=== PATIENT | male | born 1980 | race Hispanic/Latino ===

== ENCOUNTER → 2018-06-19 21:12 | Outpatient (CLI) | payer OTHER, SELFPAY | PROVIDERS: Visit Provider Physician Assistant | DX: J02.9 Acute pharyngitis, unspecified (principal) | CPT/HCPCS: 87070 ==

== ENCOUNTER 2018-10-29 16:28 | Emergency (ER) | payer OTHER, SELFPAY ==
[2018-10-29 16:39] VITALS: BP 148/104; PULSE 76; RESP 16; TEMP 37.2; O2SAT 98
--- NOTE | 2018-10-29 18:33 | ED.URI ---
HPI - URI/Sore Throat General Chief Complaint: Nasal Problem Stated Complaint: SINUS PAIN Time Seen by Provider: 10/29/18 18:27 Source: patient Mode of arrival: ambulatory Limitations: no limitations History of Present Illness HPI Narrative: Patient is a 38-year-old male who presents with facial pain. He says it thought was a viral infection about 2 weeks ago. It was getting a little bit better but over last 3 days has progressively gotten worse. He has significant pain mostly over his left his maxillary sinus he has pressure on his teeth. states that he was sweating at night. Had fever. Mild sore throat strep was negative few days ago. No cough no real headache or neck pain. MD Complaint: fever and sinus pain Onset (ago): week(s) (2) Duration: constant and progressively worsening Severity: moderate Relieving factors: nothing Exacerbating factors: nothing Related Data Previous Rx's Medication Instructions Recorded doxycycline hyclate 100 mg PO BID #20 cap 10/29/18 Allergies Allergy/AdvReac Type Severity Reaction Status Date / Time Penicillins [PENICILLINS] Allergy Intermediate Verified 10/29/18 16:45 shellfish derived Allergy Verified 10/29/18 16:45 Review of Systems Review of Systems GENERAL: Denies chills, fatigue, malaise, fever, sweats, travel HEENT: See HPI RESPIRATORY: Denies dyspnea, cough, wheezing, hemoptysis, sputum. CARDIOVASCULAR: Denies chest pain, palpitations, orthopnea, edema GASTROINTESTINAL: Denies nausea, vomiting, abdominal pain, diarrhea, constipation, melena. : Denies dysuria, frequency, incontinence, hematuria, urinary retention, flank pain. MUSCULOSKELETAL: Denies weakness, joint pain, or bony pain SKIN: No rash, no erythema, no pruritus NEUROLOGIC: Denies weakness, dizziness, headache, numbness, change in speech, confusion PSYCHIATRIC: No concerning psychosocial issues. 12 point review of systems is negative except for those stated above and HPI PFSH Social History Smoking Status: Never smoker Social History Smoking Status: Never smoker Exam Initial Vital Signs Initial Vital Signs: Vital Signs Temperature 99 F 10/29/18 16:39 Pulse Rate 76 10/29/18 16:39 Respiratory Rate 16 10/29/18 16:39 Blood Pressure 148/104 H 10/29/18 16:39 Pulse Oximetry 98 10/29/18 16:39 GENERAL: Well-appearing, well-nourished and in no acute distress. HEENT: Head atraumatic,EOMI, pupils reactive, tenderness over maxillary sinuses more on left than the right. Neck is supple CARDIOVASCULAR: Regular rate and rhythm without murmurs, rubs or gallops. RESPIRATORY: Breath sounds equal bilaterally, no wheezes rales or rhonchi. ABDOMEN: Soft, nontender. Normoactive bowel sounds all 4 quadrants. No guarding or rebound. EXTREMITIES: Normal range of motion, no clubbing or edema. Neurovascularly intact NEUROLOGICAL: Alert and oriented x4.Normal gait and speech. Cranial nerves II through XII grossly intact. SKIN: Warm, dry, no laceration, no petechiae, no rashes or lesions. Course Vital Signs - 8 hr 10/29/18 16:39 10/29/18 18:45 Temperature 99 F Pulse Rate 76 69 Respiratory Rate 16 16 Blood Pressure 148/104 H 137/85 Pulse Oximetry 98 98 MDM - URI/Sore Throat MDM Narrative Medical decision making narrative: The patient has had symptoms ongoing for greater than 10 days. I prescribed patient antibiotics as he is allergic to penicillin anaphylactic reactions to use given doxycycline. The patient has acute sinusitis is presumed to be caused by bacterial infection. Discharge Plan Departure Patient Disposition: Home Clinical Impression: Sinusitis Qualifiers: Sinusitis location: maxillary Chronicity: acute Recurrence: non-recurrent Qualified Code(s): J01.00 - Acute maxillary sinusitis, unspecified Discharge Date/Time: 10/29/18 18:58 Interventions: ED Discharge Assessment Last Done: 10/29/18 18:45 Instructions: DI for Sinusitis Activity Restrictions/Additional Instructions: *You have been diagnosed with acute sinusitis *What to do: Rest, increase fluids *Continue to take medications as directed Doxycycline 100 mg twice a day for 10 days--> sent to [facility] *Follow up with your primary care provider in 2-3 days *Return to ER if you should have increasing pain, fever, worsening headache or neck pain or any new, worsening or concerning symptoms Prescriptions: New doxycycline hyclate 100 mg capsule 100 mg PO BID Qty: 20 RF: 0 Referrals: [facility] [Provider Group]
[2018-10-29 18:45] VITALS: BP 137/85; PULSE 69; RESP 16; O2SAT 98
== END 2018-10-29 18:58 | disposition home or self-care (01) ==
PROVIDERS: Emergency Provider Emergency Medicine
DX: J01.00 Acute maxillary sinusitis, unspecified (principal)
CPT/HCPCS: 99282; 99283

== ENCOUNTER 2019-09-11 13:43 | Emergency (ER) | payer OTHER, SELFPAY ==
[2019-09-11 14:01] VITALS: BP 144/82; PULSE 81; RESP 16; TEMP 37.2; O2SAT 98; BMI 28.7
[2019-09-11] MEDS: BACITRACIN OINT 0.9 GM PCKT 1 APPLIC TOP (15:12)
[2019-09-11] MEDS: LIDO 1%/SOD BICARB 8.4% (10ML) 10 ML SYRINGE INJ (15:12)
--- NOTE | 2019-09-11 15:23 | DI.RAD.S_ITS ---
PROCEDURE: XR FINGER LT MIN 2V INDICATIONS: r/o fracture on distal 5th finger TECHNIQUE: AP hand, 2 views of the 5th finger(s) acquired. COMPARISON: None. FINDINGS: Bones: Irregularity involving the tuft of the distal phalanx of the 5th digit is present, suggesting a tuft fracture. No involvement of the distal interphalangeal joint is present. No suspicious osseous lesions are dislocations are identified. Soft tissues: No suspicious soft tissue calcifications. Soft tissue swelling involving the 5th digit is present. No unexpected radiopaque foreign bodies are identified. IMPRESSION: Tuft fracture of the distal phalanx of the 5th digit. Dictated by: Peng Hoskins M.D. on 09/11/2019 at 15:13 Approved by: Peng Hoskins M.D. on 09/11/2019 at 15:18
--- NOTE | 2019-09-11 15:29 | ED.WOUNDLAC ---
HPI - Wound/Laceration <MARY CaseP - Last Filed: 09/11/19 18:03> General Chief Complaint: Wound/Laceration Stated Complaint: lt hand pinky nail accident/ bleeding Time Seen by Provider: 09/11/19 14:44 Source: patient Mode of arrival: Ambulatory Limitations: no limitations History of Present Illness HPI narrative: This is a 38-year-old male, nonsmoker, who presents to ED with non dominant left 5th distal phalange and nail injury. Patient reports he accidentally jammed his left 5th distal phalanx she into a cement edge and his fingernail from the nail bed while he was working to remove ferns from embankment and shoveling this afternoon at 1300. 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 Patient reports able to move his affected finger without difficulty. Reports increasing discomfort when it is palpated. Related Data Previous Rx's Medication Instructions Recorded doxycycline hyclate 100 mg PO BID #20 cap 10/29/18 doxycycline hyclate 100 mg PO BID 7 Days #14 cap 09/11/19 Allergies Allergy/AdvReac Type Severity Reaction Status Date / Time Penicillins [PENICILLINS] Allergy Severe Anaphylaxis Verified 09/11/19 14:09 shellfish derived Allergy Severe Anaphylaxis Verified 09/11/19 14:09 Review of Systems <MARY CaseP - Last Filed: 09/11/19 18:03> Review of Systems Narrative: General: Denies fever, chills, fatigue, malaise, sweats. HEENT: Denies sinus pain, ear pain, sore throat, difficulty swallowing, dizziness. Respiratory: Denies dyspnea, cough, wheezing, hemoptysis, sputum. Cardiovascular: Denies chest pain, palpitations, orthopnea, edema. Gastrointestinal: Denies nausea, vomiting, abdominal pain, diarrhea, constipation, melena. : Denies dysuria, frequency, incontinence, hematuria, urinary retention. Musculoskeletal: See HPI Skin: Denies rash, skin lesions, or other. Neurologic: Denies weakness, headache, numbness, change in speech, confusion, seizures, incoordination. Psychiatric: No concerning psychosocial issues. 12-point review of systems is negative except for those stated above. Patient History <MARY CaseP - Last Filed: 09/11/19 18:03> Medical History No significant past medical history (Acute) Surgical History No pertinent past surgical history (Acute) Social History Smoking Status: Never smoker Smoking Status: Never smoker alcohol intake frequency: 0-2 drinks per day Substance Use Type: does not use Exam <BETH Case - Last Filed: 09/11/19 18:03> Narrative Exam Narrative: General appearance: well developed, well nourished, in no acute distress. Head: normocephalic, atraumatic, no scalp lesions, non-tender. ENT: Hearing grossly intact. Nose without bleeding, purulent discharge. Mucous membrane moist, no mucosal lesion. Neck/Thyroid: neck supple, full range of motion, no visible masses or meningeal signs. No JVD, non-tender without lymphadenopathy. Skin: no suspicious rashes, lesions over visible areas. Warm and dry and appropriate color for ethnicity. Heart: no clubbing, no cyanosis, no edema. Lungs: Breathing even and unlabored. No stridor. No accessory muscles used. Able to speak in full sentences. Chest: normal shape and expansion. Abdomen: non-obese, non-distended. Neurologic: alert and oriented. Cognitive exam, [employer] and PNS grossly intact on informal exam. Psych: good eye contact, normal affect. Initial Vital Signs Initial Vital Signs: Vital Signs Temperature 98.9 F 09/11/19 14:01 Pulse Rate 81 09/11/19 14:01 Respiratory Rate 16 09/11/19 14:01 Blood Pressure 144/82 H 09/11/19 14:01 Pulse Oximetry 98 09/11/19 14:01 Extrem Left upper extremity: wrist Details: normal to inspection and normal ROM; no tenderness and no swelling and hand Details: abnormal to inspection, neuromotor exam normal, neurosensory exam normal, normal ROM of fingers and other (avulsion and fractured of left 5th fingernail) <Agusto Garcia DO - Last Filed: 09/12/19 08:01> Initial Vital Signs Initial Vital Signs: Vital Signs Temperature 98.9 F 09/11/19 14:01 Pulse Rate 81 09/11/19 14:01 Respiratory Rate 16 09/11/19 14:01 Blood Pressure 144/82 H 09/11/19 14:01 Pulse Oximetry 98 09/11/19 14:01 Procedures <BETH Case - Last Filed: 09/11/19 18:03> Orthopedic Splinting/Casting Injury #1: Side: left Upper Extremity Injury Location: finger (5th) Upper Extremity Immobilizer: aluminum form splint Post splinting neuro exam: intact Post splinting vascular exam: intact Placed by: Nursing Scores <BETH Case - Last Filed: 09/11/19 18:03> GCS Azar coma scale eye opening: Spontaneous [place] coma scale verbal response: Orientated Azar coma scale motor response: Obey commands [place] coma scale total score: 15 Course <BETH Case - Last Filed: 09/11/19 18:03> Orders Ordered: Discontinued Medications Bacitracin (Bacitracin) 1 applic TOP NOW ONE Stop: 09/11/19 15:09 Last Admin: 09/11/19 15:12 Dose: 1 applic Documented by: JEIMY Lidocaine/Sodium Bicarbonate (Buffered Lidocaine 10 Ml Syr) 10 ml INJ NOW ONE Stop: 09/11/19 15:08 Last Admin: 09/11/19 15:12 Dose: 10 ml Documented by: JEIMY Vital Signs Vital signs: Vital Signs - 8 hr 09/11/19 14:01 09/11/19 16:35 Temperature 98.9 F Pulse Rate 81 58 L Respiratory Rate 16 20 Blood Pressure 144/82 H Blood Pressure [Right Arm] 147/76 H Pulse Oximetry 98 100 <Agusto Garcia DO - Last Filed: 09/12/19 08:01> Orders Ordered: Discontinued Medications Bacitracin (Bacitracin) 1 applic TOP NOW ONE Stop: 09/11/19 15:09 Last Admin: 09/11/19 15:12 Dose: 1 applic Documented by: JEIMY Lidocaine/Sodium Bicarbonate (Buffered Lidocaine 10 Ml Syr) 10 ml INJ NOW ONE Stop: 09/11/19 15:08 Last Admin: 09/11/19 15:12 Dose: 10 ml Documented by: JEIMY Vital Signs Vital signs: Vital Signs - 8 hr 09/11/19 14:01 09/11/19 16:35 Temperature 98.9 F Pulse Rate 81 58 L Respiratory Rate 16 20 Blood Pressure 144/82 H Blood Pressure [Right Arm] 147/76 H Pulse Oximetry 98 100 [facility] - Wound/Laceration <BETH Case - Last Filed: 09/11/19 18:03> Differential Diagnosis Differential diagnosis: Likely other (Fingernail avulsion, left hand 5th finger fracture, left 5th finger contusion) Medical Records Attestation: I reviewed the patient's medical records. Imaging Data XR-Finger 5th LT: Radiologist's Impression: [address] [address] XRay Report Signed Patient: Albert Diaz [facility]#: [id number] : 1980Acct:[id number] Age/Sex: 38 / MDate of Service: 09/11/19 Loc: ED Accession Number: [id number] Procedure: XR finger LT min 2V Ordering Provider: Ugo Coleman PROCEDURE: XR FINGER LT MIN 2V INDICATIONS: r/o fracture on distal 5th finger TECHNIQUE: AP hand, 2 views of the 5th finger(s) acquired. COMPARISON: None. FINDINGS: Bones: Irregularity involving the tuft of the distal phalanx of the 5th digit is present, suggesting a tuft fracture. No involvement of the distal interphalangeal joint is present. No suspicious osseous lesions are dislocations are identified. Soft tissues: No suspicious soft tissue calcifications. Soft tissue swelling involving the 5th digit is present. No unexpected radiopaque foreign bodies are identified. IMPRESSION: Tuft fracture of the distal phalanx of the 5th digit. Dictated by: Peng Hoskins M.D. on 09/11/2019 at 15:13 Approved by: Peng Hoskins M.D. on 09/11/2019 at 15:18 [facility] Narrative Medical decision making narrative: Left 5th finger nail has been removed by using 1% buffered lidocaine 1 mL with digital nerve block. Injury site was cleaned with Hibiclens and Betadine. Removed affected finger nail with minimum bleeding. Dressed with Xeroform, bacitracin and bulky dressing with pressure to stop the slow oozing. Affected finger x-ray test indicates tuft fracture of the distal balance of the 5th digit on left hand. Affected finger has been splinted on aluminum splint. Patient is treated with doxycycline b.i.d.. for 7 day course for prophylactically as an open fracture and return precautions were discussed with the patient since patient has anaphylactic allergy reaction to penicillin. Patient advised to follow-up with his PCP next 2 days and advised to take [id number] Tylenol or Motrin as needed for discomfort. Patient verbalized understanding and in agreement with the treatment plan. Discharge Plan Departure Patient Disposition: Home Clinical Impression: Closed fracture of tuft of distal phalanx of finger Nail avulsion, finger Qualifiers: Encounter type: initial encounter Qualified Code(s): S61.309A - Unspecified open wound of unspecified finger with damage to nail, initial encounter Discharge Date/Time: 09/11/19 16:56 Activity Restrictions/Additional Instructions: You have been diagnosed with [left 5th finger nail avulsion and tuft fracture per x-ray test today. We keely treat as open fracture with a prophylactic antibiotic medication. Please start taking doxycycline twice a day for next 7 days.]. What to do: *Take your medications as directed. Doxycycline has been transmitted to [facility] in [facility]. You may have sun sensitivity while your taking this medication. Please do not get your wound soaked in the water until suture removal. Keep your dressing intact for next 24 hrs. After then, you could remove your dressing, wash with soap and water. Pat dry with clean paper towel and dress it with antibiotic ointment. You can change dressing as needed and daily. Please monitor for signs and symptoms for infection such as increasing redness, swelling, warmth, pain, fever, purulent discharge. If this occurs, please return to ED or follow up with your primary care physician since your wound may be gotten infected. Please follow up with your primary care provider in 2-3 days for recheck wound. This can be done by your primary provider, walk-in clinic or here in ED. Please keep your wound clean, dry and intact all times. Prescriptions: New doxycycline hyclate 100 mg capsule 100 mg PO BID 7 Days Qty: 14 RF: 0 No Action doxycycline hyclate 100 mg capsule 100 mg PO BID Qty: 20 RF: 0 Referrals: [facility] [Outside] ED Sign-out <BETH Case - Last Filed: 09/11/19 18:03> Cosign ED Attending Donovan Attestation: I was immediately available in the department for consultation. This documentation has been reviewed and I agree with assessment and plan. Supervised by BETH Case <Agusto Garcia DO - Last Filed: 09/12/19 08:01> Cosign ED Attending Donovan Attestation: I was immediately available in the department for consultation. This documentation has been reviewed and I agree with assessment and plan. Supervised by Agusto Garcia DO
[2019-09-11 16:35] VITALS: BP 147/76; PULSE 58; RESP 20; O2SAT 100
== END 2019-09-11 16:56 | disposition home or self-care (01) ==
PROVIDERS: Emergency Provider Nurse Practitioner Family
DX: S62.637A Displaced fracture of distal phalanx of left little finger, initial encounter for closed fracture (principal); S61.307A Unspecified open wound of left little finger with damage to nail, initial encounter; W23.0XXA Caught, crushed, jammed, or pinched between moving objects, initial encounter
CPT/HCPCS: 11730; 64450; 73140; 99283; 99284

== ENCOUNTER → 2022-10-15 10:55 | Outpatient (CLI) | payer OTHER, SELFPAY ==
[2022-10-15 11:32] LABS: Add Manual Diff / Slide Review NO; Basophils Absolute Auto 0 /uL (0-100); Basophils Percent Auto 0.6 % (0-2); Eosinophils Absolute Auto 0 /uL (0-450); Eosinophils Percent Auto 0.5 % (2-4); Hematocrit 44.9 % (41-53); Hemoglobin 15.6 g/dL (13.5-17.5); Lymphocytes Absolute Auto 1500 /uL (1100-4500); Lymphocytes Percent Auto 19.2 % (25-40); Mean Corpuscular HGB Conc 34.8 % (30-36); Monocytes Absolute Auto 600 /uL (0-900); Monocytes Percent Auto 7.5 % (3-14); Neutrophils Absolute Auto 5800 /uL (1500-7000); Neutrophils Percent Auto 72.2 % (50-75); Platelet Count 261 X10^3/uL (150-400); Red Blood Cell Count 4.88 X10^6/uL (4.5-5.9); Red Cell Distribution Width 12.7 % (11.6-14.8)
[2022-10-15 13:19] LABS: Alanine Aminotransferase 44 IU/L (<50); Albumin 4.7 g/dL (3.5-5.0); Albumin Globulin Ratio 1.7 (1.0-2.8); Alkaline Phosphatase 48 U/L (38-126); Aspartate Aminotransferase 35 IU/L (17-59); BUN Creatinine Ratio 21.3 (6-22); Bilirubin Total 0.6 mg/dL (0.2-1.3); Blood Urea Nitrogen 20 mg/dL (9-20); Calcium 9.4 mg/dL (8.4-10.2); Carbon Dioxide 25 mmol/L (22-32); Chloride 102 mmol/L (98-107); Cholesterol 241 mg/dL (140-199); Estimated Glomerular Filt Rate > 60 mL/min (>60); Globulin 2.8 g/dL (1.7-4.1); Glucose 84 mg/dL (70-100); HDL Cholesterol 34 mg/dL (40-60); HEMOLYSIS < 15 (0-50); Potassium 4.7 mmol/L (3.4-5.1); Sodium 138 mmol/L (137-145); Total Protein 7.5 g/dL (6.3-8.2); Triglycerides 437 mg/dL (35-150)
[2022-10-15 13:50] LABS: TSH w/ Reflex to FT4 0.95 uIU/mL (0.47-4.68)
[2022-10-15 13:54] LABS: LDL Cholesterol Direct 116 mg/dL (<100)
[2022-10-15 15:23] LABS: Microalbumi Creatinin Ratio Ur 16.4 ug/mg CR (<30); Microalbumin Urine Random 2.2 mg/dL (0-1.6)
[2022-10-16 19:04] LABS: Hep C Virus Ab w/Reflex Quant NEGATIVE s/c (NEGATIVE)
== END ==
PROVIDERS: PCP Student in an Organized Health Care Education/Training Program; Referring Provider Student in an Organized Health Care Education/Training Program; Visit Provider Student in an Organized Health Care Education/Training Program
DX: Z00.00 Encounter for general adult medical examination without abnormal findings (principal); I10 Essential (primary) hypertension; Z13.220 Encounter for screening for lipoid disorders; Z11.59 Encounter for screening for other viral diseases; E78.5 Hyperlipidemia, unspecified
CPT/HCPCS: 36415; 80053; 80061; 82043; 82570; 83721; 84443; 85025; 86803

== ENCOUNTER → 2023-02-27 19:38 | Outpatient (CLI) | payer OTHER, SELFPAY ==
--- NOTE | 2023-02-27 19:41 | DI.MRI.S_ITS ---
PROCEDURE: MR ELBOW LT W CON INDICATIONS: Questionable joint versus distal biceps injury TECHNIQUE: Noncontrast coronal proton density fast spin echo and T2 fast spin echo with fat saturation, axial and sagittal T1 spin echo and T2 fast spin echo with fat saturation through the elbow. COMPARISON: None. FINDINGS: Image quality: Excellent. Lateral structures: The lateral ulnar collateral ligament and radial collateral ligament both appear intact. The overlying common extensor tendon also appears normal. Medial structures: The ulnar collateral ligament appears intact. The overlying common flexor tendon appears normal. The ulnar nerve appears normal in size and signal within the cubital tunnel. Anterior structures: Distal biceps tendinosis at its proximal radial insertion is seen with thickened tendon and surrounding edema. No biceps tendon rupture. The brachialis tendon is also thickened with intrasubstance T2 hyperintense signal at its insertion on proximal ulnar shaft. No bicipitoradial bursal fluid. The median and radial neurovascular bundles appear normal; no focal muscle atrophy to suggest nerve impingement. Posterior structures: The conjoint triceps tendon from the long and lateral heads appears intact. The medial head of the triceps tendon also appears normal, with direct muscle insertion onto the olecranon. No olecranon bursal fluid. Bone and cartilage: There is mild marrow edema involving capitellum of distal humerus near its articulation with radial head with small osteochondral injury measures 4 x 3 mm in size. No other area of abnormal marrow signal. No significant joint effusion. IMPRESSION: 1. Distal biceps tendinosis at its proximal radial insertion. No biceps tendon rupture. Distal brachialis tendinosis at its proximal ulnar insertion. 2. Small osteochondral injury involving capitellum adjacent to its articulation with radial head. No fracture or dislocation. Small joint effusion. Dictated by: Cem Ferguson M.D. on 02/28/2023 at 10:31 Approved by: Cem Ferguson M.D. on 02/28/2023 at 10:33
== END ==
PROVIDERS: PCP Student in an Organized Health Care Education/Training Program; Referring Provider Pediatrics; Visit Provider Pediatrics
DX: S46.212A Strain of muscle, fascia and tendon of other parts of biceps, left arm, initial encounter (principal); M25.522 Pain in left elbow; M25.422 Effusion, left elbow; X58.XXXA Exposure to other specified factors, initial encounter
CPT/HCPCS: 73221

== ENCOUNTER → 2023-10-07 07:22 | Outpatient (CLI) | payer OTHER, SELFPAY ==
--- NOTE | 2023-10-07 07:24 | DI.MRI.S_ITS ---
PROCEDURE: MR KNEE LT WO CON INDICATIONS: POSITIVE MCMURRAYS / RULE OUT LIGAMENT DAMAGE TECHNIQUE: Noncontrast sagittal PD fast spin echo and T2 fast spin echo with fat saturation, sagittal 3-D FLASH with fat saturation; coronal T1 spin echo and PD fast spin echo with fat saturation, and axial PD fast spin echo with fat saturation through the knee. COMPARISON: [facility], CR, XR KNEE 4+ VIEWS LEFT, 09/15/2023, 12:06. FINDINGS: Image quality: Excellent. Menisci: There is oblique tear involving the posterior horn of the medial meniscus. There is a parameniscal cyst adjacent to the posterior horn of the medial meniscus. In addition, there is a complex tear of the body of the medial meniscus with both vertical and horizontal component. The lateral meniscus is intact. Cruciate ligaments: The anterior and posterior cruciate ligaments appear intact. Medial structures: The medial collateral ligament appears intact. The semimembranosus tendon insertions and meniscocapsular junction appear intact. Visualized portions of the pes anserinus tendons appear normal. No abnormal bursal fluid. Lateral structures: The lateral collateral ligament, long and short heads of the biceps femoris tendon appear intact. The popliteus tendon appears normal;. Iliotibial band appears normal. Anterior structures: The quadriceps and patellar tendons appear intact. Mild patellar tendinitis and quadriceps tendinitis. Patellar alignment is normal. No femoral trochlear dysplasia or ventral trochlear prominence. There is edema in the superior lateral aspect of the infrapatellar fat pad, suggesting patellar tendon lateral femoral condyle friction syndrome. Bones and cartilage: No bone marrow contusions or fractures. Tricompartmental cartilage thinning and fibrillation. There are near full-thickness cartilage fissures in the lateral facet of patella. Joint space: There is small knee joint effusion. There is a small multilocular Brown's cyst. There is a 1.8 x 2.9 cm cyst in the posterior superior lateral aspect of the knee joint, compatible with a synovial cyst or ganglion cyst. Normal appearing synovial plicae are incidentally noted. IMPRESSION: 1. Complex tear of the medial meniscus involving the posterior horn and body. 2. Edema in the superior lateral aspect infrapatellar fat pad suggesting patellar tendon lateral femoral condyle friction syndrome. 3. Low-grade patellar tendinitis and quadriceps tendinitis. 4. Small knee joint effusion. 5. A small multilocular Brown's cyst. 6. Tricompartmental cartilage thinning and fibrillation with near-full thickness cartilage fissures in the lateral facet of patella. Dictated by: Saad Briscoe M.D. on 10/07/2023 at 12:12 Approved by: Saad Briscoe M.D. on 10/07/2023 at 12:25
[2023-10-07 07:53] LABS: Add Manual Diff / Slide Review NO; Basophils Absolute Auto 100 /uL (0-100); Eosinophils Absolute Auto 100 /uL (0-450); Eosinophils Percent Auto 2.4 % (2-4); Hematocrit 44.3 % (41-53); Hemoglobin 15.5 g/dL (13.5-17.5); Lymphocytes Absolute Auto 2300 /uL (1100-4500); Lymphocytes Percent Auto 37.8 % (25-40); Mean Corpuscular HGB Conc 34.9 % (30-36); Mean Corpuscular Hemoglobin 32.7 PG (26-34); Mean Corpuscular Volume 93.7 fL (80-100); Monocytes Absolute Auto 700 /uL (0-900); Monocytes Percent Auto 12.2 % (3-14); Neutrophils Absolute Auto 2800 /uL (1500-7000); Neutrophils Percent Auto 46.6 % (50-75); Platelet Count 245 X10^3/uL (150-400); Red Blood Cell Count 4.72 X10^6/uL (4.5-5.9); Red Cell Distribution Width 12.8 % (11.6-14.8); White Blood Cell Count 6.1 X10^3/uL (4.5-11.0)
[2023-10-07 08:02] LABS: Hemoglobin A1C% w Est Avg Glu 5.9 % (4.0-6.0)
[2023-10-07 08:21] LABS: Alanine Aminotransferase 46 IU/L (<50); Albumin 4.4 g/dL (3.5-5.0); Albumin Globulin Ratio 1.8 (1.0-2.8); Alkaline Phosphatase 43 U/L (38-126); Aspartate Aminotransferase 34 IU/L (17-59); BUN Creatinine Ratio 19.8 (6-22); Bilirubin Total 0.7 mg/dL (0.2-1.3); Blood Urea Nitrogen 17 mg/dL (9-20); Calcium 9.2 mg/dL (8.4-10.2); Carbon Dioxide 28 mmol/L (22-32); Chloride 105 mmol/L (98-107); Cholesterol 174 mg/dL (140-199); Estimated Glomerular Filt Rate > 60 mL/min (>60); Globulin 2.5 g/dL (1.7-4.1); Glucose 101 mg/dL (70-100); HDL Cholesterol 37 mg/dL (40-60); HEMOLYSIS < 15 (0-50); LDL Cholesterol Calculated 79 mg/dL (<100); Potassium 4.5 mmol/L (3.4-5.1); Sodium 136 mmol/L (137-145); Total Protein 6.9 g/dL (6.3-8.2); Triglycerides 290 mg/dL (35-150)
== END ==
PROVIDERS: PCP Family Medicine; Referring Provider Orthopaedic Surgery; Visit Provider Orthopaedic Surgery
DX: Z00.00 Encounter for general adult medical examination without abnormal findings (principal); S83.232A Complex tear of medial meniscus, current injury, left knee, initial encounter; M76.52 Patellar tendinitis, left knee; M23.92 Unspecified internal derangement of left knee; M25.462 Effusion, left knee; R60.0 Localized edema; I10 Essential (primary) hypertension; E78.5 Hyperlipidemia, unspecified
CPT/HCPCS: 36415; 73721; 80053; 80061; 83036; 85025

== ENCOUNTER 2023-12-26 06:18 | Day surgery (SDC) | payer OTHER, SELFPAY ==
[2023-12-19 12:12] VITALS: BMI 36.2
[2023-12-26 07:00] VITALS: BP 130/91; PULSE 54; RESP 16; TEMP 36.3; O2SAT 98; BMI 36.2
[2023-12-26] MEDS: LACTATED RINGERS 1,000 ML 42 ML IV (07:14)
[2023-12-26] MEDS: ACETAMINOPHEN 325 MG TABLET 975 MG PO (07:15)
--- NOTE | 2023-12-26 07:35 | PM.PREOP ---
Pre-operative Note Interval Note History & Physical reviewed/Exam performed by Physician: Yes Changes to H&P: No
[2023-12-26] MEDS: CLINDAMYCIN 600 MG/50 ML PIGGYBACK 50 MG IV (07:55)
[2023-12-26] MEDS: TRANEXAMIC ACID 1,000 MG in SODIUM CHLORIDE 0.9% 100 ML 200 MG IV (08:00)
--- NOTE | 2023-12-26 08:08 | SUR.OPER ---
Supine on padded OR bed, head on pillow, op arm secured on padded arm board at <90 degrees abduction non op arm padded and tucked at side , legs uncrossed, safety belt at thigh, tape over blanket over lower legs.
[2023-12-26] MEDS: BUPIVACAINE 0.25% (PF) VIAL 30 ML INJ (08:17)
[2023-12-26 08:34] VITALS: BP 131/90; PULSE 90; RESP 14; TEMP 36.2; O2SAT 93
[2023-12-26 08:39] VITALS: BP 123/81; PULSE 81; RESP 17; O2SAT 95
[2023-12-26 08:43] VITALS: BP 126/84; PULSE 66; RESP 13; O2SAT 94
[2023-12-26 08:56] VITALS: BP 126/74; PULSE 70; RESP 14; TEMP 36.2; O2SAT 97
--- NOTE | 2023-12-26 08:57 | P.OP_ITS ---
Operative Date/Time/Diagnoses Date of procedure: 12/26/23 Time of procedure: 08:58 Pre-op diagnosis: Left medial meniscus tear Post-op diagnosis: same Procedure & Clinicians Procedure: Left knee scope and partial medial meniscectomy Synovectomy 3 more compartments Same procedure as scheduled: Yes Indications: Indications: This is a 43-year-old male who has chronic left knee pain and medial meniscus tear as seen MRI. They have a positive Alie's and joint line tenderness. Nonoperative management was attempted including ice, anti-in flammatories, activity modifications and therapy. We also discussed potential injections. This was unsuccessful. Due to the mechanical symptoms of popping clicking and pain at the medial joint line we discussed we will forward with surgery. Risks and benefits of surgery were discussed again including the risk of infection, damage to internal structures, bleeding, nerve injury, instability, need for revision surgery, blood clots, anesthesia and . No guarantees were made regarding outcomes. Patient expressed understanding and accepted these risks and wished to go forward with surgery and consent was signed. Surgeon: Jak Jett Clinical [facility]etics Laboratory Chief: Madison Harvey Operative Notes Findings: Findings: Patellofemoral compartment-intact cartilage in the trochlea and medial and lateral facet of the patella Lateral gutter: No loose bodies Medial gutter: No loose bodies Medial compartment: Femoral condyle cartilage-intact smooth cartilage, medial tibial plateau-intact cartilage, medial meniscus-horizontal tear of the posterolateral horn and body of the medial meniscus Intercondylar notch: Intact PCL, ACL intact with the attachment to the lateral wall Lateral compartment: Femoral condyle cartilage intact, lateral tibial plateau cartilage, intact, lateral meniscus intact Closure Type: primary Specimen(s): none sent Prosthetic devices, grafts, tissues, transplants, or devices: Implants: None Estimated Blood Loss (mL): 10 Tourniquet time (min): 18 Procedure in detail: Procedure: Patient was seen in the preoperative holding area. The left lower extremity was marked with my initials. We again went over the risks and benefits of surgery and they wished to go forward with surgery. They were brought back to the operating room and placed supine on the operating table. IV antibiotics was administered as well as 1 g of TXA in the underwent smooth induction of anesthesia. A nonsterile tourniquet was placed on the upper thigh. The left lower extremity was then prepped and draped in the standard sterile fashion and again my initials were again noted. A time-out was performed. Procedure was begun with a outflow portal superomedial. Then a anteromedial and anterolateral portal were established outside in. A diagnostic scope was then performed demonstrating the above-noted findings. Thorough debridement of the anterior fat pad which encompassed multiple compartments including the lateral compartment and patellofemoral compartment was completed to allow complete extension this was done using 4 mm shaver. Slight debridement of articular cartilage was performed arthroscopically of the medial facet of the patella and of the lateral compartment. Attention was then turned to the medial meniscus. Horizontal tear encompassing the posterior horn and body was noted. Using combination of an up biter and a 4 mm shaver this was debrided until there was a smooth 3-6 mm border Instruments were removed and the knee was suctioned dry. 15 cc Marcaine were injected into the joint through the outflow portal. The wounds were closed with 3-0 Monocryl Steri-Strips and 4x4s. It was then wrapped with an Armando bandage. The patient was awoken from anesthesia without any complications and transported back to the postoperative recovery unit. Assisting participation: This operation could not have been safely performed (without compromising the technical results or length of the procedure) without the assistance of a skilled surgical first assistant. The surgical first assistant was medically necessary for proper positioning, retraction and manipulation of instruments, proper exposure, graft prep, and manipulation of tissue. Complications: none Post-operative Condition: stable Disposition: PACU Plan for aftercare: Weight-bearing as tolerated with crutches for the 1st 2 days. Okay for dressings to come off in 3 days in order to shower. Let warm soap and water run over the incisions. Pat dry and ensure that the incision is completely dry before placing new clean dressings. If there are Steri-Strips, ensure that it is dry underneath. If water gets under the Steri-Strips, remove them. Keep the new dressings on for 2 more days. At postoperative day 5, remove all dressings and shower daily and let air dry.
== END 2023-12-26 09:22 | disposition home or self-care (01) ==
PROVIDERS: PCP Family Medicine; Referring Provider Orthopaedic Surgery; Visit Provider Orthopaedic Surgery
PROC: (CPT 29870; principal; 2023-12-26 07:45)
DX: S83.32XA Tear of articular cartilage of left knee, current, initial encounter (principal); M65.9 Synovitis and tenosynovitis, unspecified
CPT/HCPCS: 29876; 29881; J1100; J1885; J2250; J2405; J2704; J3010

== ENCOUNTER → 2023-12-29 11:21 | Outpatient (CLI) | payer OTHER, SELFPAY ==
[2023-12-29 13:36] LABS: Hemoglobin A1C% w Est Avg Glu 5.4 % (4.0-6.0)
== END ==
PROVIDERS: PCP Family Medicine; Referring Provider Family Medicine; Visit Provider Family Medicine
DX: E78.5 Hyperlipidemia, unspecified (principal); R73.01 Impaired fasting glucose
CPT/HCPCS: 36415; 83036

== ENCOUNTER 2024-03-26 13:05 | Day surgery (SDC) | payer OTHER, SELFPAY ==
--- NOTE | 2024-03-26 | PATH_ITS ---
[facility] Accession Number: [id number] No. of containers..01 Tissue . 01 Material submitted: . colon - TRANSVERSE COLON POLYP . 01 Diagnosis: TRANSVERSE COLON POLYP: Tubular adenoma. [facility] 03/30/2024 0937 Local . 01 Electronically signed: . Kelin Mendez MD, Pathologist NPI- [id number] . 01 Gross description: . TRANSVERSE COLON POLYP: Received in formalin is 1 fragment(s) of stephens, soft tissue measuring 0.4 x 0.3 x 0.2 cm submitted entirely in 1 cassette(s) /NOHEMI 03/27/2024 0140 Local . 01 Pathologist provided ICD-10: D12.3 . 01 CPT . 790791 Specimen Comment: A courtesy copy of this report has been sent to [phone] Performed at: [address] [facility] [id number] MD Sergio Davidson MD Phone: [phone]
[2024-03-26 13:45] VITALS: BP 119/78; PULSE 88; RESP 16; TEMP 36.6; O2SAT 96
[2024-03-26] MEDS: LACTATED RINGERS 1,000 ML 42 ML IV (13:55)
--- NOTE | 2024-03-26 14:04 | PM.HP.1 ---
History of Present Illness History of Present Illness Date Patient Seen: 03/26/24 Time Patient Seen: 14:04 Chief complaint: Colonoscopy Narrative: 43-year-old male here for 1st time screening colonoscopy. No family history of colon cancer. No abdominal concerns today. FORMERLY [facility], [facility] Medical History Obesity (BMI 30-39.9) Hyperlipidemia Biceps muscle strain Left elbow pain Reactive airway disease (~1986) Plantar fasciitis (~2014) Chronic back pain (~2020) Chicken pox (~1985) History of recurrent ear infection Moderate mixed hyperlipidemia not requiring statin therapy No significant past medical history Surgical History Anesthesia History of toe surgery (~2003) History of thumb surgery (~2015) No pertinent past surgical history Family History Mother Breast cancer Colon cancer Hyperlipidemia Hypertension Brother Hyperlipidemia Hypertension Grandfather Cancer Grandmother Cancer Grandfather Cancer Social History household members: spouse Smoking Status: Never smoker alcohol intake: current Meds Home Medications and Allergies Home Medications Medication Instructions Recorded Confirmed Type lisinopril 20 mg tablet 20 mg PO DAILY #90 tabs 09/29/23 03/26/24 Rx rosuvastatin 20 mg tablet (Crestor) 20 mg PO DAILY #90 tabs 09/29/23 03/26/24 Rx Subcutaneous Supplies Kit #12 ea 12/24/23 02/13/24 Rx semaglutide See Rx Instructions SUBCUT .weekly 12/24/23 02/13/24 Rx #6 mL ibuprofen 600 mg tablet 600 mg PO Q6H PRN pain #60 tabs 12/26/23 02/13/24 Rx epinephrine 0.15 mg/0.15 mL IM ONCE PRN 02/13/24 02/13/24 History auto-injector (for 33 to 66 lb patients) peg 3350-sod sulf,snbhw-prm-zah 1,000 ml PO DIRECTED #2,000 mL 02/20/24 Rx 178.7-7.3-0.5-1.12-0.9 gram oral soln (Suflave) semaglutide 0.25 mg or 0.5 mg (2 1 mg (1.472 mL) SUBCUT QWEEK #9 mL 03/03/24 Rx mg/3 mL) subcutaneous pen injector triamcinolone acetonide 0.05 % 1 applic topical BID #110 grams 03/03/24 Rx topical ointment Allergies Allergy/AdvReac Type Severity Reaction Status Date / Time Penicillins [PENICILLINS] Allergy Severe Anaphylaxis Verified 03/26/24 13:44 shellfish derived Allergy Severe Anaphylaxis Verified 03/26/24 13:44 Exam Vital Signs (past 8 hours): - 03/26/24 13:45 Temperature 97.8 F Pulse Rate 88 Respiratory Rate 16 Blood Pressure 119/78 Pulse Oximetry 96 Oxygen Delivery Method Room Air Oxygen Delivery Method Room Air Narrative Exam Narrative: General adult man alert oriented no acute distress Chest nonlabored respiration Extremities warm well perfused Assessment & Plan Assessment & Plan narrative: The patient requires colorectal screening and colonoscopy is recommended. Technical details were discussed. Risks, benefits, alternatives explained. Risks including but not limited to myocardial infarction, aspiration, bleeding, pain, missed lesion, incomplete examination, need for further radiographic studies, intestinal injury, and need for major abdominal surgery were discussed. All questions were answered to their satisfaction, and they are in agreement with this plan. Time-Based Coding :: [TOTAL MINUTES] spent with patient and on the chart (including review of chart, obtaining history, exam, reviewing outside data, placing orders, documenting exam and treatment plan, and counseling patient) on [DATE].
--- NOTE | 2024-03-26 14:23 | P.OP.COLON_ITS ---
Operative Date/Time/Diagnoses Date of procedure: 03/26/24 Time of procedure: 14:23 Pre-op diagnosis: Colorectal screening, family history of colon cancer Post-op diagnosis: other (Colonic polyp x1) Procedure & Clinicians Study performed: Screening colonoscopy and polypectomy Same procedure as scheduled: Yes Indications: Screening Surgeon: Last Pollard Procedure Notes Procedure in detail: The history and physical was performed/updated and the patient is ASA class is 2. The procedure was discussed in detail with the patient. Potential risks complications including infection, bleeding, missed diagnosis, perforation, need for surgery, and were explained. Their questions were answered and informed consent was obtained. Patient was brought to the procedure room and placed standard monitoring equipment. The patient's vital signs were monitored continuously throughout the entire procedure. Prior to starting time-out was performed. The patient was placed in the left lateral recumbent position. Procedural sedation was admi nistered by anesthesia. Examination began with a thorough inspection of the perianal area there was no evidence of fissures, fistulae, external hemorrhoids or cutaneous malignancy. The colonoscopy scope was then placed into the anal canal and was advanced to the cecum, which was identified by the ileocecal valve, the appendiceal orifice and the confluence of the taenia. The scope was then slowly withdrawn examining colon thoroughly in all directions, irrigating it of any residual stool. The scope was retroflexed within the rectum The patient tolerated the procedure well. They will be discharged once criteria are met. The prep was of fair quality. The withdrawl time was 7 minutes. FINDINGS * Transverse colon 3 mm polyp removed with biopsy forceps Diverticulosis of distal colon. Specimen(s): other (Transverse colon polyp) Impression: Colonic polyp x1 Post-procedure Recommendations: Colonoscopy in 5 years Disposition: same day surgery
[2024-03-26 14:52] VITALS: BP 106/70; PULSE 70; RESP 12; TEMP 36.8; O2SAT 91
[2024-03-26 14:56] VITALS: BP 106/69; PULSE 76; RESP 16; O2SAT 93
== END 2024-03-26 15:15 | disposition home or self-care (01) ==
PROVIDERS: Surgery; PCP Family Medicine; Referring Provider Surgery; Visit Provider Surgery
PROC: 0DJD8ZZ Inspection of Lower Intestinal Tract, Via Natural or Artificial Opening Endoscopic (ICD-10-PCS; CPT 45378; principal; 2024-03-26 14:30)
DX: Z12.11 Encounter for screening for malignant neoplasm of colon (principal); Z80.0 Family history of malignant neoplasm of digestive organs; K57.30 Diverticulosis of large intestine without perforation or abscess without bleeding; D12.3 Benign neoplasm of transverse colon
CPT/HCPCS: 45380; J2704; J3010

== ENCOUNTER → 2024-04-23 08:05 | Outpatient (CLI) | payer OTHER, SELFPAY ==
[2024-04-23 08:42] LABS: Hemoglobin A1C% w Est Avg Glu 5.5 % (4.0-6.0)
[2024-04-23 08:57] LABS: Cholesterol 102 mg/dL (140-199); HDL Cholesterol 34 mg/dL (40-60); LDL Cholesterol Calculated 33 mg/dL (<100); Triglycerides 173 mg/dL (35-150)
== END ==
PROVIDERS: PCP Family Medicine; Referring Provider Family Medicine; Visit Provider Family Medicine
DX: E66.9 Obesity, unspecified (principal); R73.01 Impaired fasting glucose; Z68.30 Body mass index [BMI] 30.0-30.9, adult; E78.2 Mixed hyperlipidemia; I10 Essential (primary) hypertension; R73.9 Hyperglycemia, unspecified
CPT/HCPCS: 36415; 80061; 83036

== ENCOUNTER 2024-08-08 19:07 | Emergency (ER) | payer OTHER, SELFPAY ==
[2024-08-08 19:33] VITALS: BP 119/76; PULSE 94; RESP 18; TEMP 36.8; O2SAT 95; BMI 30.7
--- NOTE | 2024-08-08 19:39 | DI.RAD.S_ITS ---
PROCEDURE: XR FINGER LT MIN 2V INDICATIONS: jammed or broken finger TECHNIQUE: AP hand, 2 views of the 4th digit finger(s) acquired. COMPARISON: [facility], , XR FINGER LT MIN 2V, 09/11/2019, 15:25. FINDINGS: Acute dorsal dislocation of the left hand 4th digit at the PIP joint; the middle phalangeal base is overriding the head of the proximal phalanx by 1 shaft width. No dorsal or volar plate avulsion fracture at this time. No other acute fracture or dislocation. The joint spaces are otherwise preserved. IMPRESSION: Acute dorsal dislocation of the left hand 4th digit at the PIP joint. Dictated by: Bairon Perry M.D. on 08/08/2024 at 20:46 Approved by: Bairon Perry M.D. on 08/08/2024 at 20:47
[2024-08-08] MEDS: LIDOCAINE 1% (PF) 5 ML INJ (21:09)
--- NOTE | 2024-08-08 21:26 | ED_ITS ---
HPI - Extremity Injury (Upper) General Chief Complaint: Extremity Injury, Upper Stated Complaint: L Ring Finger Broken Time Seen by Provider: 08/08/24 21:03 Source: patient Mode of arrival: Ambulatory History of Present Illness HPI narrative: 43-year-old male right-handed, was playing basketball this evening and jammed his left ring finger with the ball, complains of pain and swelling. No other injuries. Specifically no injuries to the other fingers on the affected hand, also no wrist, forearm, elbow, upper arm, shoulder discomfort. No prior injuries to that finger recalled. No ring on the finger. No attempted sections or procedures. Related Data Home Medications Medication Instructions Recorded Confirmed epinephrine 0.15 mg/0.15 mL IM ONCE PRN 02/13/24 04/26/24 auto-injector (for 33 to 66 lb patients) Previous Rx's Medication Instructions Recorded lisinopril 20 mg tablet 20 mg PO DAILY #90 tabs 09/29/23 rosuvastatin 20 mg tablet (Crestor) 20 mg PO DAILY #90 tabs 09/29/23 ibuprofen 600 mg tablet 600 mg PO Q6H PRN pain #60 tabs 12/26/23 triamcinolone acetonide 0.05 % 1 applic topical BID #110 grams 03/03/24 topical ointment semaglutide (weight loss) 2.4 2.4 mg (0.75 mL) SUBCUT QWEEK #3 mL 07/14/24 mg/0.75 mL subcutaneous pen injector (Hafsa) Allergies Allergy/AdvReac Type Severity Reaction Status Date / Time Penicillins [PENICILLINS] Allergy Severe Anaphylaxis Verified 04/26/24 13:53 shellfish derived Allergy Severe Anaphylaxis Verified 04/26/24 13:53 Patient History Medical History Obesity (BMI 30-39.9) Hyperlipidemia Biceps muscle strain Left elbow pain Reactive airway disease (~1986) Plantar fasciitis (~2014) Chronic back pain (~2020) Chicken pox (~1985) History of recurrent ear infection Moderate mixed hyperlipidemia not requiring statin therapy No significant past medical history Surgical History Anesthesia History of toe surgery (~2003) History of thumb surgery (~2015) No pertinent past surgical history Family History Mother Breast cancer Colon cancer Hyperlipidemia Hypertension Brother Hyperlipidemia Hypertension Grandfather Cancer Grandmother Cancer Grandfather Cancer Social History household members: spouse Smoking Status: Never smoker alcohol intake: current Smoking Status: Never smoker alcohol intake frequency: 0-2 drinks per day Exam Narrative Exam Narrative: GENERAL:Well-developed patient, in mild distress. HEAD: Atraumatic. Normocephalic. EYES: Pupils equal round and reactive. Extraocular motions intact. No scleral icterus. No injection or drainage. ENT: Nose without bleeding, purulent drainage. Throat without erythema, tonsillar hypertrophy or exudate. Airway patent. NECK: Trachea midline. Non tender CARDIOVASCULAR: Regular rate and rhythm without murmurs, gallops, or rubs. RESPIRATORY: Clear to auscultation. Breath sounds equal bilaterally. No wheezes, rales, or rhonchi. GASTROINTESTINAL: Abdomen soft, non-tender, nondistended. EXTREMITIES: Swelling of the left ring finger PIP level. Good distal perfusion finger. No subungual hematoma or other nail deformity.. BACK: Nontender without deformity or crepitance. No flank tenderness. NEURO: AOx3. Motor functions grossly nonfocal SKIN: No rash or erythema of visible areas Initial Vital Signs Initial Vital Signs: Vital Signs Temperature 98.3 F 08/08/24 19:33 Pulse Rate 94 H 08/08/24 19:33 Respiratory Rate 18 08/08/24 19:33 Blood Pressure 119/76 08/08/24 19:33 Pulse Oximetry 95 08/08/24 19:33 Oxygen Delivery Method Room Air 08/08/24 19:33 Procedures Orthopedic Joint Reduction Joint #1: Time Out Performed: No Side: left Joint Reduction Location: finger Local Anesthesia: lidocaine 1% Amount of anesthesic used (mL): 3 Technique used: traction/counter-traction and direct manipulation Post-reduction neuro exam: intact and no change Post-reduction vascular: intact Post Reduction X-Ray Obtained: Yes Post Reduction X-Ray Results: reduced Splint Applied: Yes Patient Tolerated Procedure: Well Course Orders Ordered: Discontinued Medications Lidocaine HCl (Lidocaine 1% (Pf) 5 Ml) 5 ml INJ NOW ONE Stop: 08/08/24 21:04 Last Admin: 08/08/24 21:09 Dose: 5 ml Documented By: HNG Vital Signs Vital signs: Vital Signs - 8 hr 08/08/24 21:57 Temperature 97.8 F Pulse Rate 84 Respiratory Rate 14 Blood Pressure 131/72 Pulse Oximetry 98 Oxygen Delivery Method Room Air MDM - Extremity Injury (Upper) MDM Narrative Medical decision making narrative: Right-handed basketball injury to the left index finger this evening, screening x-ray from triage shows 4th finger dorsal PIP dislocation without obvious fracture. Verbal consent for digital block and reduction. Reduced easily, see procedure note. [id number] wrap to middle finger. 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 Also given local orthopedics consult if needed. Discharge Plan Departure Patient Disposition: Home Clinical Impression: Dislocation of finger, closed Activity Restrictions/Additional Instructions: Right-handed, left ring finger injury at basketball, finger jammed into the basketball, with pain and swelling at the proximal interphalangeal joint (PIP joint) of the 4th ring finger. On x-ray there was a dislocation of the PIP joint. Digital block anesthesia was performed, and single attempt reduction was easily performed with palpable and visual reduction. Postreduction x-rays reassuring, anatomic position, no obvious fractures. Finger splinted, Coban wrap to the adjacent middle finger. 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 Take [id number] Tylenol and or Motrin as needed for discomfort. Return earlier to this/nearest emergency department for any change worsening symptoms or any concerns prior Prescriptions: No Action triamcinolone acetonide 0.05 % ointment 1 applic topical BID Qty: 110 0RF Wegovy 2.4 mg/0.75 mL pen injector 2.4 mg SUBCUT QWEEK Qty: 3 5RF lisinopril 20 mg tablet 20 mg PO DAILY Qty: 90 3RF rosuvastatin [Crestor] 20 mg tablet 20 mg PO DAILY Qty: 90 3RF epinephrine 0.15 mg/0.15 mL auto-injector IM ONCE PRN ibuprofen 600 mg tablet 600 mg PO Q6H PRN (Reason: pain) Qty: 60 0RF Referrals: Eli Melgar DO [Primary Care Provider] - Georgi Pizarro MD [Physician] - Stand Alone Forms: Patient Portal/API/Survey
--- NOTE | 2024-08-08 21:36 | DI.RAD.S_ITS ---
PROCEDURE: XR FINGER LT MIN 2V INDICATIONS: post-reduction 4th finger L disloc TECHNIQUE: AP hand, 2 views of the 4th finger(s) acquired. COMPARISON: [facility], CR, XR FINGER LT MIN 2V, 08/08/2024, 19:43. [facility], CR, XR FINGER LT MIN 2V, 09/11/2019, 15:25. FINDINGS: Status post reduction of a prior 4th digit dorsal dislocation at the PIP joint, now in anatomic alignment. No radiographically evident dorsal or volar plate avulsion fracture. The joint spaces are preserved. IMPRESSION: Status post successful reduction of a 4th digit dorsal PIP joint dislocation. Dictated by: Bairon Perry M.D. on 08/08/2024 at 22:49 Approved by: Bairon Perry M.D. on 08/08/2024 at 22:50
[2024-08-08 21:57] VITALS: BP 131/72; PULSE 84; RESP 14; TEMP 36.6; O2SAT 98
== END 2024-08-08 22:00 | disposition home or self-care (01) ==
PROVIDERS: Emergency Provider Emergency Medicine; PCP Family Medicine
DX: S63.281A Dislocation of proximal interphalangeal joint of left index finger, initial encounter (principal); W23.0XXA Caught, crushed, jammed, or pinched between moving objects, initial encounter; Y93.67 Activity, basketball
CPT/HCPCS: 26770; 73140; 99282; 99283

== ENCOUNTER → 2024-09-24 08:29 | Outpatient (CLI) | payer OTHER, SELFPAY ==
[2024-09-24 10:44] LABS: Hemoglobin A1C% w Est Avg Glu 5.1 % (4.0-6.0)
[2024-09-24 11:05] LABS: Alanine Aminotransferase 55 IU/L (<50); Albumin 4.6 g/dL (3.5-5.0); Albumin Globulin Ratio 2.1 (1.0-2.8); Alkaline Phosphatase 43 U/L (38-126); Aspartate Aminotransferase 46 IU/L (17-59); BUN Creatinine Ratio 20.4 (6-22); Bilirubin Total 0.8 mg/dL (0.2-1.3); Blood Urea Nitrogen 19 mg/dL (9-20); Calcium 9.6 mg/dL (8.4-10.2); Carbon Dioxide 28 mmol/L (22-32); Chloride 102 mmol/L (98-107); Cholesterol 121 mg/dL (140-199); Estimated Glomerular Filt Rate > 60 mL/min (>60); Globulin 2.2 g/dL (1.7-4.1); Glucose 90 mg/dL (70-100); HDL Cholesterol 38 mg/dL (40-60); HEMOLYSIS < 15 (0-50); LDL Cholesterol Calculated 62 mg/dL (<100); Sodium 137 mmol/L (137-145); Total Protein 6.8 g/dL (6.3-8.2); Triglycerides 105 mg/dL (35-150)
[2024-09-24 11:07] LABS: Potassium 5.4 mmol/L (3.4-5.1)
== END ==
PROVIDERS: PCP Family Medicine; Referring Provider Family Medicine; Visit Provider Family Medicine
DX: E78.5 Hyperlipidemia, unspecified (principal); I10 Essential (primary) hypertension; E66.9 Obesity, unspecified
CPT/HCPCS: 36415; 80053; 80061; 83036

== ENCOUNTER 2025-04-10 19:18 | Emergency (ER) | payer OTHER, SELFPAY ==
[2025-04-10 19:29] VITALS: BP 110/64; PULSE 69; RESP 18; TEMP 36.2; O2SAT 97; BMI 30.7
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
[2025-04-10] MEDS: DOXYCYCLINE HYCLATE 100 MG TABLET PO (23:32)
[2025-04-10 23:41] VITALS: BP 110/62; PULSE 72; RESP 18; O2SAT 98
== END 2025-04-10 23:42 | disposition home or self-care (01) ==
PROVIDERS: Emergency Provider Family Medicine; PCP Family Medicine
DX: R21 Rash and other nonspecific skin eruption (principal)
CPT/HCPCS: 36415; 99283

== ENCOUNTER → 2025-04-29 12:19 | Outpatient (CLI) | payer OTHER, SELFPAY ==
[2025-04-29 13:29] LABS: Hemoglobin A1C% w Est Avg Glu 5.3 % (4.0-6.0)
== END ==
PROVIDERS: PCP Family Medicine; Referring Provider Family Medicine; Visit Provider Family Medicine
DX: I10 Essential (primary) hypertension (principal); W57.XXXA Bitten or stung by nonvenomous insect and other nonvenomous arthropods, initial encounter; E66.9 Obesity, unspecified
CPT/HCPCS: 36415; 83036; 86617